=== PATIENT | male | born 1935 | race Caucasian/White ===

== ENCOUNTER 2024-09-18 18:54 | Inpatient (IN) | payer MEDICARE, OTHER ==
[~2024-09-18] VITALS: Ht 157.5 cm; Wt 58.5 kg
[~2024-09-18 18:54] MED LIST: [UNRECOGNIZED DRUG - OTHER] TP
[2024-09-18] MEDS ORDERED: METOCLOPRAMIDE HCL 10 MG/2 ML VIAL ONE (19:27)
[2024-09-18 19:30] LABS: BASOPHILS # (AUTO) 0.1 K/uL (0.0-0.2); BASOPHILS % (AUTO) 1.1 % (0.0-2.0); EOSINOPHILS % (AUTO) 0.3 % (0.0-6.0); HEMATOCRIT 40 % (39-51); HEMOGLOBIN 12.9 g/dL (13.5-17.5); LYMPHOCYTES # (AUTO) 0.2 K/uL (0.8-4.8); LYMPHOCYTES % (AUTO) 1.8 % (20.0-44.0); MEAN CORPUSCULAR HEMOGLOBIN 29 PG (26.0-33.0); MEAN CORPUSCULAR HGB CONC 33 g/dl (31.0-36.0); MEAN CORPUSCULAR VOLUME 90 fL (80-96); MONOCYTES # (AUTO) 0.4 K/uL (0.1-1.30); MONOCYTES % (AUTO) 3.8 % (2.0-12.0); NEUTROPHILS # (AUTO) 10.6 K/uL (1.8-8.9); PLATELET COUNT (AUTO) 281 K/uL (150-450); RED BLOOD CELL COUNT(AUTO) 4.41 MIL/uL (4.5-6.0); RED CELL DISTRIBUTION WIDTH 13.3 % (11.5-15.0); WHITE BLOOD COUNT (AUTO) 11.4 K/uL (4.3-11.0)
[2024-09-18] MEDS: IV NS 0.9% 1,000 ML BAG IV ONE ×2 (19:33→20:50)
[2024-09-18] MEDS: METOCLOPRAMIDE HCL 10 MG/2 ML VIAL IV ONE (19:34)
[2024-09-18 19:40] LABS: CALCIUM, SERUM 8.9 mg/dL (8.5-10.1); CARBON DIOXIDE 30 mmol/L (21-32); CHLORIDE 102 mmol/L (98-107); CREATININE 1.5 mg/dL (0.6-1.3); GLUCOSE 176 mg/dL (74-106); POTASSIUM 4.2 mmol/L (3.5-5.1); SODIUM SERUM 135 mmol/L (136-145); UREA NITROGEN, BLOOD 30 mg/dL (7-18)
[2024-09-18 19:56] LABS: ALANINE AMINOTRANSFERASE 13 U/L (12-78); ALBUMIN 3.6 g/dL (3.4-5.0); ALKALINE PHOSPHATASE 71 U/L (46-116); ASPARTATE AMINOTRANSFERASE 16 U/L (15-37); BILIRUBIN,DIRECT 0.1 mg/dL (0.0-0.2); BILIRUBIN,TOTAL 0.4 mg/dL (0.2-1.0); NT-PRO BNP 201 pg/mL (0-125); TOTAL PROTEIN, SERUM 6.9 g/dL (6.4-8.2)
[2024-09-18 20:36] LABS: LACTIC ACID 2.3 mmol/L (0.4-2.0)
[2024-09-18 20:44] LABS: APPEARANCE,URINE CLEAR (CLEAR); BILIRUBIN,URINE NEGATIVE (NEGATIVE); BLOOD, URINE 1+ Ery/uL (NEGATIVE); COLOR,URINE YELLOW (YELLOW); KETONES,URINE TRACE mg/dL (NEGATIVE); LEUKOCYTE ESTERASE ,URINE NEGATIVE (NEGATIVE); NITRITE, URINE NEGATIVE (NEGATIVE); PH,URINE 5.5 (5.0-8.0); PROTEIN,URINE 1+ mg/dl (NEGATIVE); UGLUCOSE NEGATIVE (NEGATIVE); UROBILINOGEN,URINE 0.2 EU/dL (0.2)
[2024-09-18] MEDS ORDERED: VANCOMYCIN 1 GM /D5W 250 ML PB IV ONE (20:48)
[2024-09-18] MEDS ORDERED: PIPERACI/TAZO 3.375GM/D5W 50ML PB IV ONE (20:49)
[2024-09-18 20:52] LABS: ADD URINE CULTURE NO; BACTERIA,URINE None seen /HPF (None Seen); MUCUS,URINE Many /LPF (None Seen); WBC,URINE 0-2 /HPF (0-3)
[2024-09-18] MEDS: VANCOMYCIN 1 GM in IV D5W 250 ML IV ONE (20:52)
[2024-09-18] MEDS: PIPERACILLIN /TAZOBACTAM 3.375 G in IV D5W 50 ML IV ONE (20:52)
[2024-09-18 22:00] VITALS: BP 98/61; TEMP 98.6; O2SAT 93; O2SAT 95
[2024-09-18] MEDS ORDERED: ONDANSETRON HCL/PF 4 MG/2 ML VIAL IVP PRN (22:00)
[2024-09-18] MEDS ORDERED: ACETAMINOPHEN 325 MG TABLET PO PRN (22:00)
[2024-09-18] MEDS ORDERED: ALBUTEROL FS 2.5 MG/3 ML VIAL.NEB NEB PRN (22:00)
[2024-09-18] MEDS: ENOXAPARIN SODIUM 40 MG/0.4 ML DISP.SYRIN SQ SCH (22:19)
[2024-09-18] MEDS: IV NS 0.9% 1,000 ML IV PRN (22:42)
[2024-09-19] MEDS ORDERED: PIPERACI/TAZO 3.375GM/D5W 50ML PB IV ONE (04:21)
[2024-09-19] MEDS: PIPERACILLIN /TAZOBACTAM 3.375 G in IV D5W 50 ML IV SCH (04:24)
[2024-09-19 07:00] VITALS: BP 100/56; TEMP 98.1; O2SAT 93
[2024-09-19 07:20] LABS: BASOPHILS % (AUTO) 0.5 % (0.0-2.0); HEMATOCRIT 33 % (39-51); HEMOGLOBIN 10.9 g/dL (13.5-17.5); LYMPHOCYTES # (AUTO) 0.5 K/uL (0.8-4.8); LYMPHOCYTES % (AUTO) 5.7 % (20.0-44.0); MEAN CORPUSCULAR HEMOGLOBIN 30 PG (26.0-33.0); MEAN CORPUSCULAR HGB CONC 34 g/dl (31.0-36.0); MEAN CORPUSCULAR VOLUME 90 fL (80-96); MONOCYTES # (AUTO) 0.7 K/uL (0.1-1.30); MONOCYTES % (AUTO) 9.2 % (2.0-12.0); NEUTROPHILS # (AUTO) 6.7 K/uL (1.8-8.9); NEUTROPHILS % (AUTO) 84.6 % (43.0-81.0); PLATELET COUNT (AUTO) 234 K/uL (150-450); RED BLOOD CELL COUNT(AUTO) 3.61 MIL/uL (4.5-6.0); RED CELL DISTRIBUTION WIDTH 13.3 % (11.5-15.0); WHITE BLOOD COUNT (AUTO) 7.9 K/uL (4.3-11.0)
[2024-09-19 07:53] LABS: CALCIUM, SERUM 7.7 mg/dL (8.5-10.1); CREATININE 1.6 mg/dL (0.6-1.3); MAGNESIUM 1.9 mg/dL (1.8-2.4); PHOSPHORUS 3.3 mg/dL (2.5-4.9); POTASSIUM 3.5 mmol/L (3.5-5.1)
[2024-09-19] MEDS: PANTOPRAZOLE 40 MG TABLET.DR PO SCH (08:25)
[2024-09-19] MEDS ORDERED: MONT10TA22 PO (09:54)
[2024-09-19] MEDS ORDERED: DOCU100C36 PO (09:54)
[2024-09-19] MEDS ORDERED: TERA2CAP4 PO (09:54)
[2024-09-19] MEDS ORDERED: PROP10DR15 EACHEYE (09:54)
[2024-09-19] MEDS ORDERED: BENZ-38 PO (09:54)
[2024-09-19] MEDS ORDERED: CLOP75TA15 PO (09:54)
[2024-09-19] MEDS ORDERED: ASPI-1169 PO (09:54)
[2024-09-19] MEDS ORDERED: ACET325T53 PO (09:54)
[2024-09-19] MEDS ORDERED: TRAM50TA2 PO (09:54)
[2024-09-19] MEDS ORDERED: BICA50TA49 PO (09:54)
[2024-09-19] MEDS ORDERED: PANT40TA49 PO (09:54)
[2024-09-19] MEDS ORDERED: ALBU18HF2 IH (09:54)
[2024-09-19] MEDS ORDERED: FERR325T30 PO (09:54)
[2024-09-19] MEDS ORDERED: ATOR10TA PO (09:54)
[2024-09-19] MEDS: Z GUARD REMEDY 4 OZ OINT TP PRN (11:05)
[2024-09-19 16:00] VITALS: BP 105/74; TEMP 97.7; O2SAT 95
[2024-09-19] MEDS: VANCOMYCIN 750 MG in IV D5W 250 ML IV SCH (19:50)
[2024-09-19 20:00] VITALS: BP 91/61; TEMP 99; O2SAT 93
[2024-09-20 07:05] LABS: CALCIUM, SERUM 7.8 mg/dL (8.5-10.1); CREATININE 1.5 mg/dL (0.6-1.3); POTASSIUM 3.9 mmol/L (3.5-5.1)
[2024-09-20] MEDS ORDERED: PANTOPRAZOLE 40 MG TABLET.DR PO SCH (09:00)
[2024-09-20] MEDS: MONTELUKAST SODIUM (10MG) 10 MG TABLET PO SCH (09:17)
[2024-09-20] MEDS: FERROUS SULFATE (325 MG) 325 MG/TAB TABLET PO SCH (09:17)
[2024-09-20] MEDS: CLOPIDOGREL BISULFATE 75 MG TABLET PO SCH (09:17)
[2024-09-20] MEDS: ASPIRIN 81 MG TAB.CHEW PO SCH (09:18)
[2024-09-20] MEDS: BICALUTAMIDE 50 MG TABLET PO SCH (10:24)
[2024-09-20] MEDS: PIPERACILLIN /TAZOBACTAM 3.375 G in IV D5W 100 ML IV SCH (15:10)
[2024-09-20 20:00] VITALS: BP_SYST 107; BP_SYST 134; BP_DIAS 53; BP_DIAS 68; TEMP 98; TEMP 98.1; TEMP 98.2; O2SAT 97
[2024-09-20] MEDS: ATORVASTATIN 10 MG TABLET PO SCH (21:31)
[2024-09-20] MEDS: TERAZOSIN HCL 1 MG CAPSULE PO SCH (21:48)
[2024-09-21 07:09] LABS: CALCIUM, SERUM 7.7 mg/dL (8.5-10.1); POTASSIUM 3.7 mmol/L (3.5-5.1)
[2024-09-21 08:00] VITALS: BP 122/73; TEMP 97.9; O2SAT 96
[2024-09-21] MEDS: PANTOPRAZOLE 40 MG TABLET.DR PO SCH (09:16)
[2024-09-21] MEDS ORDERED: AMOX-430 PO (12:39)
[2024-09-21 16:00] VITALS: BP 137/80; TEMP 97.9; O2SAT 97
== END 2024-09-21 17:43 | disposition home health service (06) | DRG 871 ==
LOC: ER 19:17 → MED 21:24
PROVIDERS: ADMIT Nurse Practitioner Family; ATTEND Internal Medicine
DX: A41.9 Sepsis, unspecified organism (principal); J15.9 Unspecified bacterial pneumonia; D68.59 Other primary thrombophilia; E87.1 Hypo-osmolality and hyponatremia; N17.9 Acute kidney failure, unspecified; J44.0 Chronic obstructive pulmonary disease with (acute) lower respiratory infection; E87.20 Acidosis, unspecified; E86.0 Dehydration; Z85.118 Personal history of other malignant neoplasm of bronchus and lung; Z85.46 Personal history of malignant neoplasm of prostate; M81.0 Age-related osteoporosis without current pathological fracture; D64.9 Anemia, unspecified; E83.9 Disorder of mineral metabolism, unspecified; N40.0 Benign prostatic hyperplasia without lower urinary tract symptoms; R65.20 Severe sepsis without septic shock; R73.9 Hyperglycemia, unspecified; I12.9 Hypertensive chronic kidney disease with stage 1 through stage 4 chronic kidney disease, or unspecified chronic kidney disease; N18.9 Chronic kidney disease, unspecified; G31.84 Mild cognitive impairment of uncertain or unknown etiology; I69.344 Monoplegia of lower limb following cerebral infarction affecting left non-dominant side; M25.572 Pain in left ankle and joints of left foot
CPT/HCPCS: 36415; 71045-TC; 80048-TC; 80076-TC; 81001; 83605-TC; 83690-TC; 83735-TC; 83880; 84100-TC; 84484-TC; 85025-TC; 87040-TC; 87081-TC; 93970-TC; A4223; G0378; J1650; J2543; J2765; J3370; J3371; J7030; J7060